=== PATIENT | male | born 1970 | race Caucasian/White ===

== ENCOUNTER 2019-05-02 05:38 | Outpatient (CLI) | payer BC ==
[~2019-05-02] VITALS: Ht 188 cm; Wt 104.5 kg
[2019-05-02] MEDS ORDERED: FENO145T37 PO (14:57)
[2019-05-02] MEDS ORDERED: ASPI-586 PO (14:57)
[2019-05-02] MEDS ORDERED: OMEP20TA33 PO (14:57)
== END 2019-05-02 14:58 | disposition home or self-care (01) ==
LOC: PREOP 05:38
PROVIDERS: ATTEND Surgery
DX: Z01.818 Encounter for other preprocedural examination (principal)

== ENCOUNTER 2019-05-09 07:27 | Day surgery (SDC) | payer BC ==
[~2019-05-09] VITALS: Ht 188 cm; Wt 104.5 kg
[~2019-05-09 07:27] MED LIST: ASPI-586 PO; FENO145T37 PO; OMEP20TA33 PO
[2019-05-09] MEDS ORDERED: LACTATED RINGERS 1,000 ML IV STA (07:30)
[2019-05-09] MEDS ORDERED: LACTATED RINGERS 1,000 ML IV ONE (07:33)
[2019-05-09] MEDS ORDERED: PROPOFOL INJECTION 50 ML IV ONE (07:39)
[2019-05-09] MEDS ORDERED: MIDAZOLAM 2 MG/2 ML (VERSED) VIAL ONE (07:40)
[2019-05-09 07:48] VITALS: BP 164/101
[2019-05-09] MEDS ORDERED: HURRICAINE EXT TUBE (BENZOCAINE) ONE (08:04)
--- NOTE | 2019-05-09 08:30 | Progress Note-Pre Operative ---
Pre-Operative Progress Note H&P Reviewed The H&P was reviewed, patient examined and no changes noted. Time Seen by Provider: 08:01 Date H&P Reviewed: May 09, 2019 Time H&P Reviewed: 08:01 Pre-Operative Diagnosis: GERD, Screening Colon AVA DE LA O DO May 09, 2019 08:29
--- NOTE | 2019-05-09 09:04 | Progress Note-Post Operative ---
Post-Operative Progess Note Surgeon (s)/Market Director (s) Surgeon AVA DE LA O DO Market Director: Moon Sparrow MSIII Pre-Operative Diagnosis GERD, Screening Colon Post-Operative Diagnosis Gastritis Hiatal Hernia Colon polyps Int Hemorrhoids Procedure & Operative Findings Date of Procedure 05/09/19 Procedure Performed/Findings EGD with bx Colon with snare Anesthesia Type IV sedation by PRIVACY ATTORNEY Estimated Blood Loss Estimated blood loss (mL): scant Specimens/Packing Specimens Removed antral, body of stomach, GE jxn bx Cecal polyp Rectal polyp AVA DE LA O DO May 09, 2019 09:04
[2019-05-09 09:05] VITALS: BP 112/75
--- NOTE | 2019-05-09 09:05 | Endoscopy Discharge Instruct ---
Endo Procedure/Findings Findings 1.: Gastritis 2.: Hiatal Hernia 3.: Polyp 4.: Internal Hemorrhoids Discharge Instructions - Activity: You might feel a little sleepy until tomorrow. This is due to the medicine you received to relax you. Until tomorrow, you should: NOT drive a car, operate machinery or power tools. NOT drink any alcoholic beverages. NOT make any important decisions or sign importortant papers. Do not return to work until tomorrow, unless otherwise instructed. Resume previous activities tomorrow. Diet: Start by taking liquids. If you tolerate liquids, advance to solid food. make an appointment for one week 1.: Colonscopy in 5 years, EGD in 3 years Notify Physician - If you experience excessive bleeding, unusual abdominal pain, fever, or chest pain, contact your doctor immediately. AVA DE LA O DO May 09, 2019 09:05
[2019-05-09 09:10] VITALS: BP_SYST 122; BP_SYST 124; BP_DIAS 75; BP_DIAS 81
[2019-05-09 09:40] VITALS: BP 126/80
[2019-05-09 09:50] VITALS: BP 126/80
--- NOTE | 2019-05-09 12:49 | Anesthesia-General Post-Op ---
MAC Patient Condition Mental Status/LOC: Same as Preop Cardiovascular: Satisfactory Nausea/Vomiting: Absent Respiratory: Satisfactory Pain: Controlled Complications: Absent Post Op Complications Complications None Follow Up Care/Instructions Patient Instructions None needed. Anesthesiology Discharge Order Discharge Order Patient is doing well, no complaints, stable vital signs, no apparent adverse anesthesia problems. No complications reported per nursing. ZAHRAA MUSTAFA CRNA May 09, 2019 12:49
--- NOTE | 2019-05-10 00:53 | OPERATIVE REPORT ---
DATE OF SERVICE: PREOPERATIVE DIAGNOSIS: Screening colonoscopy and gastroesophageal reflux disease. POSTOPERATIVE DIAGNOSES: Gastritis, hiatal hernia, colon polyps and internal hemorrhoids. PROCEDURE: 1. EGD with biopsy. 2. Colonoscopy with snare polypectomy. SURGEON: Toby Potts DO. TELEPHONE SERVICES SALES REPRESENTATIVE: KUSHAL Christian. ANESTHESIA: IV sedation by GREG. SPECIMEN: Biopsies from the antrum, body of the stomach and GE junction as well as colon polyps, one from the cecum, one from the rectum. BLOOD LOSS: Scant. FLUIDS: Per anesthesia. POSTOPERATIVE CONDITION: Stable. INDICATION FOR PROCEDURE: The patient is a 48-year-old male who needs a screening colonoscopy. He has also been having some chronic GERD and needed to get the EGD. FINDINGS: The patient had some gastritis and then noted to have a pretty large hiatal hernia. In the colon, he had 2 polyps, one in the cecum and one in the rectum and he had some internal hemorrhoids. PROCEDURE NOTE: After informed consent was obtained, the patient was brought to the endoscopy suite, placed in bed in left lateral decubitus position. He was administered IV sedation by the VP CUSTOMER SERVICE who then monitored his vitals the entire time, heart rate, blood pressure and pulse ox, started with the EGD, placed the scope down the mouth through the esophagus into the stomach. Upon entering the stomach, noted some mild gastritis, took a biopsy of the antrum, pushed into the duodenum, looked fine, pulled back and took the biopsy of the antrum and then pulled back and did a biopsy of the body of stomach, retroflexed the scope, saw a small hiatal hernia, took a picture of this and then pulled the scope up into the GE junction, did a biopsy of the GE junction. Pushed the scope back in and suctioned out the air out of the stomach, pulled the scope up the esophagus, did not see anything in the esophagus. At this point, switched gloves, switched cameras, went down below and started the colonoscopy, pushed in to about 140 cm, able to get all the way to cecum, took a picture of appendiceal orifice and then noted a polyp in the cecum, did a snare polypectomy of this and then continued up the ascending colon, insufflating to look circumferentially looking at the ascending colon to the hepatic flexure, then down the transverse colon, to the splenic flexure, into the descending colon down in the sigmoid and finally into the rectum, saw a polyp in the rectum, did another snare polypectomy of this and then retroflexed the scope, saw some very small internal hemorrhoids, took a picture and then removed the scope. The patient tolerated the procedure, recovered in endoscopy suite. Job ID: [id number] DocumentID: [id number] Dictated Date: 05/09/2019 18:20:16 Platform Material Handler Manager Date: 05/10/2019 00:52:06 Dictated By: TOBY POTTS DO
== END 2019-05-09 10:30 | disposition home or self-care (01) ==
LOC: ENDO 07:27
PROVIDERS: ATTEND Surgery